=== PATIENT | female | born 1995 | race Caucasian/White ===

== ENCOUNTER 2020-04-04 13:14 | Emergency (ER) | payer OTHER ==
[~2020-04-04] VITALS: Ht 152.4 cm; Wt 49.9 kg
[2020-04-04] MEDS ORDERED: FOLIC ACID0.8 M1 PO (13:46)
[2020-04-04] MEDS ORDERED: IRON 100-VITAM1 EACH PO (13:47)
== END 2020-04-04 21:40 | disposition home or self-care (01) ==
LOC: ER 13:14
DX: O02.1 Missed abortion (principal); O36.80X0 Pregnancy with inconclusive fetal viability, not applicable or unspecified; O26.851 Spotting complicating pregnancy, first trimester

== ENCOUNTER 2020-04-06 01:36 | Emergency (ER) | payer OTHER ==
[~2020-04-06] VITALS: Ht 152.4 cm; Wt 49.9 kg
[~2020-04-06 01:36] MED LIST: FOLIC ACID0.8 M1 PO; IRON 100-VITAM1 EACH PO
[2020-04-06] MEDS ORDERED: KETO10TA2 PO (07:07)
== END 2020-04-06 08:13 | disposition home or self-care (01) ==
LOC: ER 01:36
DX: O20.0 Threatened abortion (principal); Z3A.09 9 weeks gestation of pregnancy

== ENCOUNTER → 2020-10-21 | Outpatient (CLI) | payer OTHER ==
[~2020-10-21] MED LIST changes: +KETO10TA2 PO
== END | disposition home or self-care (01) ==
LOC: PRENATAL 10:59
PROVIDERS: ATTEND Obstetrics & Gynecology Maternal & Fetal Medicine
DX: O35.0XX1 Maternal care for (suspected) central nervous system malformation in fetus, fetus 1 (principal); O35.3XX1 Maternal care for (suspected) damage to fetus from viral disease in mother, fetus 1; O98.512 Other viral diseases complicating pregnancy, second trimester; Z36.89 Encounter for other specified antenatal screening; Z3A.19 19 weeks gestation of pregnancy